=== PATIENT | male | born 1975 | race Hispanic/Latino ===

== ENCOUNTER 2023-10-13 11:54 | Emergency (ER) | payer BC ==
[~2023-10-13] VITALS: Ht 167.6 cm; Wt 90.8 kg
[2023-10-13] MEDS ORDERED: IBUPROFEN 600 MG TAB PO ONE (12:30)
[2023-10-13] MEDS ORDERED: ACETAMINOPHEN 500 MG TAB PO ONE (12:30)
[2023-10-13] MEDS ORDERED: HYDROCODON-ACE1 EA11 PO (12:58)
[2023-10-13] MEDS ORDERED: HYDROCODONE/ACETA 7.5/325 TAB PO ONE (13:00)
[2023-10-13 13:20] VITALS: BP 130/92
== END 2023-10-13 13:20 | disposition home or self-care (01) ==
LOC: ED 11:54
DX: S83.91XA Sprain of unspecified site of right knee, initial encounter (principal); X50.0XXA Overexertion from strenuous movement or load, initial encounter
CPT/HCPCS: 73560; 99283; A9270